=== PATIENT | female | born 1995 | race Caucasian/White ===

== ENCOUNTER 2018-12-15 12:32 | Emergency (ER) | payer OTHER ==
[2018-12-15] MEDS: TIZANIDINE 4 MG TAB PO (13:45)
[2018-12-15] MEDS: KETOROLAC 30 MG INJ IM ×2 (13:45→13:46)
== END 2018-12-15 15:07 | disposition home or self-care (01) ==
LOC: FTE 12:32
DX: M54.5 Low back pain (principal)
CPT/HCPCS: 72100; 81025; 99283-25